=== PATIENT | female | born 1990 | race African-American/Black ===

== ENCOUNTER 2017-05-30 09:27 | Inpatient (IN) ==
[2017-05-30] MEDS ORDERED: MEPERIDINE 50 MG/1 ML VIAL IV PRN (09:39)
[2017-05-30] MEDS ORDERED: BUTORPHANOL 2 MG/ML VIAL IV PRN (09:39)
[2017-05-30] MEDS ORDERED: ONDANSETRON 4 MG/2 ML VIAL IV PRN ×3 (09:39→20:34)
[2017-05-30] MEDS ORDERED: LACTATED RINGERS 1,000 ML IV SCH (10:00)
--- NOTE | 2017-05-30 10:32 | OB/GYN History & Physical ---
History of Present Illness Chief complaint: Active labor at 7 cm History of present illness: Ms. Meneses is a 26 year old female 26-year-old 2 para 1 EDC is 06/05/2017 presents on the in active labor. Spontaneous rupture membranes clear fluid fetus is active heart tones are category 1. Patient was brought in by ambulance was reexamined and found to be 8 cm 100% effaced vertex presentation at a -0 station. She received IV Stadol for analgesic and was prepared for vaginal delivery. Risks benefits thoroughly discussed she is in full agreement. This patient had approximately 2 visits and her second visit was on 29 May. Where she was found to be 1-2 cm dilated. She did have a NST and biophysical profile which was reactive and the biophysical profile demonstrated an 8 out of 8 score Home Medications Medication Instructions Recorded Confirmed Type No Known Home Medications [No 05/15/17 05/29/17 History Known Home Medications] Allergies Allergy/AdvReac Type Severity Reaction Status Date / Time No Known Allergies Allergy Unverified 12/02/15 17:31 Medical,Surgical,& Family Hx - Medical History Neurology: History of: Migraine - Family History Family History: Reports;: Family Cancer (PGM), Family Heart Disease (FATHER) - Social History Smoking Status: Never smoker Frequency of Alcohol Use: None Type of Drug Use: None Exam [employer] - Constitutional General appearance: mild distress - Antepartum / Post Antepartum Exam Cervix - Dilatation: 8 cm Station: 0 station Rupture: Clear fluid - Head Head exam: Present: normal inspection - Eye Eye exam: Present: EOMI Pupils: Present: DARLIN - ENT ENT exam: Present: normal exam - Neck Neck exam: Present: normal inspection - Respiratory Respiratory exam: Present: clear to auscultation bilaterally - Breast Breasts: as per HPI Menstruation: as per HPI - Cardiovascular Cardiovascular exam: Present: regular rate and rhythm - GI/Abdominal GI/Abdominal exam: Present: normal bowel sounds - Extremities Exam Extremities exam: Present: normal inspection - Back Exam Back exam: Present: normal inspection - Neurological Exam Neurological exam: Present: alert, oriented X3 - Psychiatric Psychiatric exam: Present: normal affect - Skin Skin exam: Present: normal color Assessment and Plan (1) Active labor Status: Acute Current Visit: Yes (2) Late care Status: Acute Assessment and plan: Anticipate , positive drug screen, 2 visits Current Visit: Yes
[2017-05-30 10:36] LABS: Cord Arterial Blood HCO3 20.1 MMOL/L
--- NOTE | 2017-05-30 10:36 | Event Note ---
Patient arrived at our hospital at approximately 9:15 AM, Stage I of labor Spontaneous rupture fluids at approximately 07 100 heart tones are category 1 IV Pitocin at approximately complete dilatation External monitoring 2 mg of IV Stadol at 9 cm. Stage II Midline episiotomy Delivery of a 7 pound 6 ounce , delivered the infant was at 1016 Male infant Cord blood and cord gas obtained Apgars were 9 at 1 minute and 9 at 5 minutes Stage III Repair of episiotomy 2-0 Vicryl and 3-0 chromic Placenta was delivered manually 3 cord vessels Blood loss was approximately 200 cc Center was sent to lab for further evaluation nurses present in for delivery Mother stable Placenta was delivered at 1019
[2017-05-30 10:37] LABS: Apearance,Urine CLEAR (Clear); Bilirubin,Urine Negative (Negative); Blood, Urine Small mg/dL (Negative); Glucose,Urine (UA) Negative (Negative); Ketones,Urine Negative (Negative); Mucus,Urine Occasional /LPF (Occasional); Nitrite,Urine Negative (Negative); Protein,Urine Negative; RBC,Urine 4 /HPF (0-4); Squamous Epithelial Cell,Urine Occasional /HPF (0-10); Urine Color Yellow (Yellow); Urine Specific Gravity 1.019 (1.001-1.035); Urine Urobilinogen < 2.0 EU/DL (0.2-1.0); WBC,Urine 1 /HPF (0-6)
[2017-05-30] MEDS ORDERED: BISACODYL 10 MG SUPP RECTAL PRN (10:37)
[2017-05-30] MEDS ORDERED: RHO(D) IMMUNE GLOBULIN 300 MCG SYRINGE IM ONE (10:37)
[2017-05-30] MEDS ORDERED: MEASLES/MUMPS/RUBELLA VACCINE 0.5 ML VIAL SUBCUT ONE (10:37)
[2017-05-30] MEDS ORDERED: BENZOCAINE 20%/MENTHOL 0.5% SPRAY 56 GM CAN TOP PRN (10:37)
[2017-05-30] MEDS ORDERED: WITCH HAZEL PADS 100/JAR TOP PRN (10:37)
[2017-05-30] MEDS ORDERED: OXYTOCIN/LR 20 UNIT/1,000 ML BAG IV ONE (10:37)
[2017-05-30] MEDS ORDERED: oxyCODONE/ACETAMINOPHEN 5-325 MG TABLET PO PRN (10:37)
[2017-05-30] MEDS ORDERED: HYDROCORTISONE 2.5% RECTAL CREAM 30 GM TUBE TOP PRN (10:37)
[2017-05-30] MEDS ORDERED: LANOLIN 50% CREAM 0.3 OZ TUBE TOP PRN (10:37)
[2017-05-30] MEDS ORDERED: ACETAMINOPHEN 325 MG TABLET PO PRN (10:37)
[2017-05-30] MEDS ORDERED: DIPH/TET/ACEL PERT BOOSTER VACCINE 0.5 ML VIAL IM ONE (10:37)
[2017-05-30 10:42] LABS: Cord Venous Blood HCO3 20.1 MMOL/L; Cord Venous Blood PCO2 47.2 MMHG; Cord Venous Blood PO2 21.1
[2017-05-30 12:08] LABS: Barbiturates Screen,Urine Negative (Negative); Benzodiazepines Screen,Urine Negative (Negative); Cannabinoid Screen,Urine Positive (Negative); Opiate Screen,Urine Negative (Negative); Phencyclidine Screen,Urine Negative (Negative)
[2017-05-30] MEDS ORDERED: PENICILLIN G BENZATHINE 2,400,000 UNIT/4 ML SYRINGE IM STA (14:17)
[2017-05-30] MEDS ORDERED: SODIUM CHLORIDE 0.9% 100 ML IV ONE (14:26)
[2017-05-30] MEDS ORDERED: LIDOCAINE 1% 50 ML VIAL ONE (14:26)
[2017-05-30] MEDS ORDERED: AMPICILLIN 2,000 MG VIAL ONE (14:26)
[2017-05-30] MEDS: IBUPROFEN 800 MG TABLET PO PRN (15:35)
[2017-05-30] MEDS: oxyCODONE/ACETAMINOPHEN 5-325 MG TABLET PO PRN (15:35)
[2017-05-30] MEDS: DOCUSATE SODIUM 100 MG CAPSULE PO SCH (21:55)
[2017-05-30] MEDS ORDERED: PROMETHAZINE 25 MG/1 ML VIAL IM PRN (23:45)
[2017-05-30] MEDS ORDERED: PROMETHAZINE 25 MG/1 ML VIAL ONE (23:48)
[2017-05-31] MEDS: oxyCODONE/ACETAMINOPHEN 5-325 MG TABLET PO PRN ×2 (00:22→08:34)
[2017-05-31 06:14] LABS: Basophils % 0.2 % (0.0-0.8); Eosinophils # 0.1 10*3/uL (0.0-0.87); Eosinophils % 0.5 % (0.00-10.9); Hematocrit 25.3 VOL% (35.7-47.0); Hemoglobin 8.6 GM/DL (12.0-16.0); Immature Granulocytes % 0.5 %; Immature Granulocytes Absolute 0.06 #; Lymphocytes # 2.8 10*3/uL (1.4-4.0); Lymphocytes % 21.5 % (21.3-54.2); Mean Corpuscular Hemoglobin 31 PG (27-34); Mean Corpuscular Volume 89.7 FL (87-102); Mean Platelet Volume 11.2 FL (9.6-12.0); Monocytes # 0.9 10*3/uL (0.11-0.8); Monocytes % 7.2 % (1.7-12.7); Neutrophils # 9.2 10*3/uL (1.4-7.4); Neutrophils % 70.1 % (38.7-73.9); Platelet Count 158 T/CUMM (130-400); Red Blood Count 2.82 MC/CUMM (3.8-5.5); Red Cell Distribution Width 13.9 % (9.3-17.3); White Blood Count 13.1 T/CUMM (4-12)
[2017-05-31] MEDS: DOCUSATE SODIUM 100 MG CAPSULE PO SCH ×2 (08:34→21:56)
[2017-05-31] MEDS ORDERED: ONDANSETRON 4 MG TABLET PO PRN (12:27)
[2017-06-01] MEDS: IBUPROFEN 800 MG TABLET PO PRN (01:29)
[2017-06-01 08:13] VITALS: BP 107/74
--- NOTE | 2017-06-01 09:22 | Discharge Summary ---
Hospital Course - Hospital Course Hospital Course: 26-year-old female was admitted with active labor. She is approximately 7 8 cm dilated. This patient had approximately 2 visits beginning at 7 weeks and then subsequently again at 38 weeks and 3 days. She presented to labor and delivery in active labor and delivered a viable without any major complaints. No other problems noted. Patient did test positive for THC and denies at this time any other drug usage. Hospital course was unremarkable she will be discharged follow-up her office in 6 weeks. She decides to use Ortho Evra patch for her contraception option Diagnosis - Discharge Diagnosis (1) Active labor Status: Acute (2) Late care Status: Acute Specialty Discharge - Follow Up or Referrals Follow up with: Florence Lynch MD [Physician] - Discharge Plan - Discharge Data Condition at Discharge: Stable Discharge Diet: advance to your usual diet Activity: resume usual activities as tolerated Hygiene: no restrictions Weight Bearing at Discharge: full weight bearing Driving: no restrictions Contact your physician if you experience:: fever over 101, Bleeding - Discharge Medications New Ibuprofen Tab [Motrin Tab] 800 mg PO Q6H PRN #30 tablet PRN Reason: Pain Moderate (4-7) oxyCODONE/ACETAMINOPHEN 5-325 [Percocet 5-325] 1 tablet PO Q6H PRN #14 tablet PRN Reason: Pain Severe (8-10) No Action No Known Home Medications [No Known Home Medications] - Follow Up or Referral Follow Up: Florence Lynch MD [Physician] - - Forms/Instructions Instructions: Perineal Care (DC), Syphilis (DC), Vaginal Delivery ( DC), Bleeding (DC) Exam - Constitutional Vitals: Period Temp Pulse Resp BP Sys/Lynn Pulse Ox Last 24 Hr 97.5 F-98.3 F 95-109 18-20 102-126/67-78 97-99 DS: Provider Date of admission: 05/30/17 09:39 Primary care physician: . No PCP Attending physician on admission: Florence Lynch MD Consults: 05/30/17 10:37 Consult to Teacher Vocal [CONS] Routine Consult Teacher Vocal: Breast Feeding 05/30/17 18:52 Consult to Case Mgmt/Social Srvs [CONS] Routine Reason for Case Mgmt/Social Srvs: Other Consult Comment: 2 visits, positive drug screen Discharging clinician: Florence Lynch MD
--- NOTE | 2017-06-02 12:18 | Pathology Report from [facility] ---
[facility] ACCESSION # : [id number] PATIENT NAME : Eloise Meneses ORDERING DR : ANGLE KIRK MD CLINICAL HX: G2D1 IUP @ 39-11/23 weeks gestation - Term - No care POST-OP DX: Same SPECIMEN INFO: Placenta GROSS DESCRIPTION: Received fresh labeled with the patients name and consists of a 626 gram placenta which measures 18.6 x 18.0 x 2.9 cm. membranes are partially pink-mcgee and translucent to opaque. The umbilical cord inserts within 1.0 cm of the placenta margin, measures 29.5 cm, and contains three vessels. The surface is [id number]. The maternal surface is beefy red with intact cotyledons with scattered areas of calcification and some adherent blood. No gross abnormalities on sectioning. Sections submitted: A membranes and cord, B and maternal surfaces. DIAGNOSIS FOR ELOISE MENESES: PLACENTA, 39.1 WEEKS GESTATION: Mature placenta, 626 grams. Very focal chorioamnionitis. Trivascular umbilical cord, 29.5 cm in length. COLLECTED DATE: 05/30/2017 [facility] REPORT DATE: 06/02/2017 ELECTRONICALLY SIGNED BY: Annmarie Kitchen M.D. 06/02/2017 - 11:02:22 THEA
== END 2017-06-01 11:20 | disposition home or self-care (01) | DRG 560 ==
LOC: N.LDOUT 09:27 → N.LD 09:29 → N.OB 14:49
PROVIDERS: ADMIT Obstetrics & Gynecology; ATTEND Obstetrics & Gynecology